=== PATIENT | female | born 1980 | race African-American/Black ===

== ENCOUNTER 2024-01-10 13:24 | Emergency (ER) | payer SELFPAY ==
[~2024-01-10] VITALS: Ht 165.1 cm; Wt 77.0 kg
[2024-01-10 13:39] VITALS: O2SAT 99
[2024-01-10] MEDS ORDERED: DIPH25CA83 MT (15:55)
[2024-01-10] MEDS ORDERED: P50 MT (15:55)
[2024-01-10] MEDS ORDERED: DIPHENHYDRAMINE 50MG CAPSULE PO ONE (16:00)
[2024-01-10] MEDS: DIPHENHYDRAMINE 25MG CAPSULE PO NR (16:04)
[2024-01-10] MEDS: PREDNISONE 20MG TABLET PO ONE (16:05)
[2024-01-10 16:11] VITALS: BP 122/68; PULSE 90; RESP 16; TEMP 36.55848; O2SAT 99
== END 2024-01-10 16:35 | disposition home or self-care (01) ==
LOC: ER 13:36
DX: T78.40XA Allergy, unspecified, initial encounter (principal); Z98.890 Other specified postprocedural states; X58.XXXA Exposure to other specified factors, initial encounter
CPT/HCPCS: 99283; Q0163; J7512